=== PATIENT | male | born 1965 | race Caucasian/White ===

== ENCOUNTER 2021-05-20 16:23 | Emergency (ER) | payer OTHER ==
[2021-05-20 16:44] VITALS: BP 139/82; PULSE 83; TEMP 98; BMI 35.5
[2021-05-20] MEDS ORDERED: ACETAMINOPHEN 325 MG TABLET (FP) PO ONE (17:13)
[2021-05-20] MEDS ORDERED: LIDOCAINE VISCOUS 2% ORAL/TOP 20 ML UNIT-DOSE CUP MM ONE (17:16)
[2021-05-20] MEDS ORDERED: ACETAMINOPHEN 500 MG TABLET (FP) ONE (17:18)
[2021-05-20] MEDS ORDERED: LIDOCAINE VISCOUS 2% ORAL/TOP 20 ML UNIT-DOSE CUP ONE (17:20)
== END 2021-05-20 18:06 | disposition home or self-care (01) ==
LOC: JER 16:23 → JERFT 16:23
DX: K14.6 Glossodynia (principal)
CPT/HCPCS: 99283-25